=== PATIENT | female | born 1925 | race Hispanic/Latino ===

== ENCOUNTER 2017-08-25 18:27 | Inpatient (IN) | payer MEDICARE ==
[2017-08-25 19:25] LABS: BASO % 0.6 % (0.0-2.0); EOS # 0.1 K/uL (0.0-0.7); EOS % 1.3 % (0.0-4.0); HEMOGLOBIN 13.1 g/dL (12.0-16.0); LYMPH # 2.1 K/uL (1.0-4.3); LYMPH % 30.6 % (20.0-40.0); MEAN CELL VOLUME 92.3 fl (81.0-99.0); MEAN CORPUSCULAR HEMOGLOBIN 30.8 pg (27.0-31.0); MEAN CORPUSCULAR HGB CONC 33.4 g/dL (33.0-37.0); MONO # 0.6 K/uL (0.0-0.8); NEUT # 4.1 K/uL (1.8-7.0); NEUT % 58.5 % (50.0-75.0); NRBC % 0.1 % (0.0-0.0); RBC 4.25 Mil/uL (3.80-5.20); RED CELL DISTRIBUTION WIDTH 14.3 % (11.5-14.5)
[2017-08-25 19:28] LABS: PARTIAL THROMBOPLASTIN TIME 36.1 Seconds (25.6-37.1); PROTHROMBIN TIME 11.2 Seconds (9.8-13.1)
[2017-08-25 19:30] LABS: ALB/GLOB RATIO 1.1 (1.0-2.1); ALBUMIN 4.2 g/dL (3.5-5.0); ALT/SGPT 82 U/L (9-52); AST/SGOT 70 U/L (14-36); BLOOD UREA NITROGEN 17 mg/dl (7-17); CALCIUM 9.5 mg/dL (8.4-10.2); GFR AFRICAN-AMERICAN > 60; GFR NON-AFRICAN AMERICAN > 60
--- NOTE | 2017-08-25 19:46 | ED PDOC ---
HPI: Hypertension/Hypotension Chief Complaint (Provider): DIZZINESS History Per: Patient (89 Y/O FEMALE H/O ARYTHMIA ON ELOQUIS/BISOPROLOL VISITING FROM [facility] NOTES NEAR SYNCOPE INTERMITTENTLY SINCE TODAY 9AM. DENIES ANY CHEST PAIN/ABDOMINAL PAIN/FEVERS/CHILLS/COUGH/VOMITING. WAS SEEN BY BAKER AND SENT TO ED FOR EVALUATION.) <Brooklyn Malcolm - Last Filed: 08/25/17 21:16> <Caesar Salcido - Last Filed: 08/25/17 22:16> Time Seen by Provider: 08/25/17 19:15 Chief Complaint (Nursing): High Blood Pressure Supervising Attending Note - Supervising Attending Note The Documented history was done by the: Attending Physician The documented physical exam was done by the: Attending Physician - Attestation: I have personally seen and examined this patient.: Yes I have fully participated in the care of the patient.: Yes I have reviewed all pertinent clinical information, including history, physical exam and plan: Yes <Caesar Salcido - Last Filed: 08/25/17 22:16> Past Medical History Reviewed: Historical Data, Nursing Documentation, Vital Signs Vital Signs: Last Vital Signs Temp 98.8 F 08/25/17 18:37 Pulse 36 L 08/25/17 19:43 Resp 14 08/25/17 19:43 BP 156/36 H 08/25/17 19:43 Pulse Ox 100 08/25/17 19:43 - Medical History PMH: Atrial Fibrillation, HTN - Family History Family History: States: No Known Family Hx <Brooklyn Malcolm - Last Filed: 08/25/17 21:16> Vital Signs: Last Vital Signs Temp 98.8 F 08/25/17 18:37 Pulse 71 08/25/17 21:05 Resp 15 08/25/17 21:05 BP 126/91 H 08/25/17 21:05 Pulse Ox 100 08/25/17 21:16 <Caesar Salcido - Last Filed: 08/25/17 22:16> - Home Medications Home Medications: Ambulatory Orders Medication Instructions Recorded Apixaban [Eliquis] 5 mg PO BID 08/25/17 Bisoprolol Fumarate 1.25 mg PO DAILY 08/25/17 Patient Own Control 300 mg PO DAILY 08/25/17 - Allergies Allergies/Adverse Reactions: Allergies Allergy/AdvReac Type Severity Reaction Status Date / Time No Known Allergies Allergy Verified 08/25/17 18:38 Review of Systems ROS Statement: Except As Marked, All Systems Reviewed And Found Negative <Brooklyn Malcolm - Last Filed: 08/25/17 21:16> Physical Exam - Reviewed Nursing Documentation Reviewed: Yes Vital Signs Reviewed: Yes - Physical Exam Appears: Positive for: Well, Non-toxic, No Acute Distress Head Exam: Positive for: ATRAUMATIC, NORMAL INSPECTION, NORMOCEPHALIC Skin: Positive for: Normal Color, Warm, DRY Eye Exam: Positive for: EOMI, Normal appearance, PERRL ENT: Positive for: Normal ENT Inspection Neck: Positive for: Normal, Painless ROM Cardiovascular/Chest: Positive for: Regular Rate, Rhythm Respiratory: Positive for: CNT, Normal Breath Sounds Gastrointestinal/Abdominal: Positive for: Normal Exam, Soft Back: Positive for: Normal Inspection Extremity: Positive for: Normal ROM Neurologic/Psych: Positive for: Alert, Oriented <Brooklyn Malcolm - Last Filed: 08/25/17 21:16> - Laboratory Results Result Diagrams: 08/25/17 19:01 08/25/17 19:01 - ECG ECG Rhythm: Positive for: Sinus Rhythm (NSR 71 BPM; WITH FIRST DEG AV BLOCK) O2 Sat by Pulse Oximetry: 100 - Progress ED Course And Treament: PATIENT NOTED TO HAVE PAUSE ON HEART MONITOR WITH NEAR SYNCOPE NOTED AT THAT TIME. rhythm strip obtained with complete heart block noted intermittently. Pacer pads placed. Atropine 0.5mg iv x 1 dose given d/w Dr. Mari. Patient to be admitted to ICU on pacer pads. Patient's repeat BP normotensive and episodes brief and symptomatic in ED. CAse d/w Sumeet landry by Dr. Salcido <Brooklyn Malcolm - Last Filed: 08/25/17 21:16> - Laboratory Results Result Diagrams: 08/25/17 19:01 08/25/17 19:01 - Critical Care Total Time (In Min): 60 <Caesar Salcido - Last Filed: 08/25/17 22:16> Disposition - Patient ED Disposition Is Patient to be Admitted: Yes - Disposition Disposition Time: 21:14 <Brooklyn Malcolm - Last Filed: 08/25/17 21:16> Discussed With Dr.: Bryan Kim (Dr Mari) Comment: spoke with Long Landry NP covering Dr Kim Doctor Will See Patient In The: Hospital <FélixalessandraisraCaesar Morro - Last Filed: 08/25/17 22:16> - Clinical Impression Clinical Impression: Intermittent complete heart block - Disposition Condition: CRITICAL
[2017-08-25] MEDS ORDERED: DOPamine 400mg/250ml D5W 400 MG/250 ML BAG IV ONE ×2 (21:50→21:56)
--- NOTE | 2017-08-25 21:50 | CP.PCM.CON ---
History of Present Illness - History of Present Illness History of Present Illness: CC: dizziness HPI: 89F PMH afib on Bisoprolol and Eliquis presented to the ED complaining of waxing and waning episodes of moderate dizziness and lightheadedness lasting 10 minutes at a time, associated with mild fatigue. Pt was initially seen by Dianne puente, and was sent to ED for further evaluation for a pause on heart monitor. In ED, pt found to be in complete heart block, symptomatic. Given Atropine with some improvement for about an hour, however pt then continued to have more frequent episodes of complete heart block, symptomatic. Cardiology Consult with Dr. Mari appreciated. Pt placed on pacemaker pads, dopamine at 10 mcg, trending cardiac enzymes, and echo for AM. Holding all beta blockers. Currently in ICU patient resting comfortably, HR 73, BP 137/74. Monitor closely ICU. ROS: per HPI all other systems reviewed and negative Past Patient History - Past Social History Smoking Status: Never Smoked - CARDIAC Hx Atrial Fibrillation: Yes Hx Hypertension: Yes - PSYCHIATRIC Hx Substance Use: No Meds Allergies/Adverse Reactions: Allergies Allergy/AdvReac Type Severity Reaction Status Date / Time No Known Allergies Allergy Verified 08/25/17 18:38 - Medications Medications: Current Medications Apixaban (Eliquis) 5 mg PO BID RODGER PRN Reason: Protocol Physical Exam - Constitutional Appears: Non-toxic, No Acute Distress - Head Exam Head Exam: ATRAUMATIC, NORMOCEPHALIC - Eye Exam Eye Exam: EOMI, Normal appearance, PERRL Pupil Exam: NORMAL ACCOMODATION - ENT Exam ENT Exam: Mucous Membranes Moist, Normal Oropharynx - Neck Exam Neck exam: Positive for: Full Rom, Normal Inspection - Respiratory Exam Respiratory Exam: Clear to Auscultation Bilateral, NORMAL BREATHING PATTERN - Cardiovascular Exam Cardiovascular Exam: RRR, +S1, +S2 - GI/Abdominal Exam GI & Abdominal Exam: Normal Bowel Sounds, Soft. absent: Mass - Extremities Exam Extremities exam: Positive for: normal capillary refill, pedal pulses present - Back Exam Back exam: absent: CVA tenderness (L), CVA tenderness (R) - Neurological Exam Neurological exam: Alert, Oriented x3 - Psychiatric Exam Psychiatric exam: Normal Affect, Normal Mood - Skin Skin Exam: Dry, Warm Results - Vital Signs Recent Vital Signs: Last Vital Signs Temp 98.8 F 04/13/18 18:37 Pulse 71 08/25/17 21:05 Resp 15 08/25/17 21:05 BP 126/91 H 08/25/17 21:05 Pulse Ox 100 08/25/17 21:16 - Labs Result Diagrams: 08/25/17 19:01 08/25/17 19:01 Labs: Laboratory Results - last 24 hr 08/25/17 08/25/17 08/25/17 19:01 19:01 19:01 WBC 7.0 RBC 4.25 Hgb 13.1 Hct 39.3 MCV 92.3 MCH 30.8 MCHC 33.4 RDW 14.3 Plt Count 248 MPV 10.0 Neut % (Auto) 58.5 Lymph % (Auto) 30.6 [place] % (Auto) 9.0 Eos % (Auto) 1.3 Baso % (Auto) 0.6 Neut # (Auto) 4.1 Lymph # (Auto) 2.1 [place] # (Auto) 0.6 Eos # (Auto) 0.1 Baso # (Auto) 0.0 PT 11.2 INR 1.0 APTT 36.1 Sodium 145 Potassium 4.4 Chloride 102 Carbon Dioxide 28 Anion Gap 19 BUN 17 Creatinine 0.6 L Est GFR ( Amer) > 60 Est GFR (Non-Af Amer) > 60 Random Glucose 111 H Calcium 9.5 Total Bilirubin 0.3 AST 70 H ALT 82 H Alkaline Phosphatase 121 Troponin I 0.0150 Total Protein 8.2 Albumin 4.2 Globulin 4.0 H Albumin/Globulin Ratio 1.1 Assessment & Plan - Assessment and Plan (Free Text) Plan: 89F PMH afib on Bisoprolol and Eliquis presented to the ED complaining of waxing and waning episodes of moderate dizziness and lightheadedness lasting 10 minutes at a time, associated with mild fatigue. Pt was initially seen by [facility], and was sent to ED for further evaluation for a pause on heart monitor. In ED, pt found to be in complete heart block, symptomatic. Given Atropine with some improvement for about an hour, however pt then continued to have more frequent episodes of complete heart block, symptomatic. Cardiology Consult with Dr. Mari appreciated. Pt placed on pacemaker pads, dopamine at 10 mcg, trending cardiac enzymes, and echo for AM. Holding all beta blockers. Currently in ICU patient resting comfortably, HR 73, BP 137/74. Monitor closely ICU. Complete Heart Block Hx Afib - pt on pacemaker pads, Dopamine 10 mcg, trending enzymes, ECHO in AM - monitor electrolytes - Cardiology consult Dr. Mari appreciated and followed - NPO - HOLD all BB - continue Eliquis, pt flips between sinus and afib.
[2017-08-25] MEDS ORDERED: DiphenhydrAMINE 50 mg/ml Inj IVP STA (23:43)
[2017-08-26 05:49] LABS: HEMOGLOBIN 14.1 g/dL (12.0-16.0); MEAN CELL VOLUME 91.7 fl (81.0-99.0); MEAN CORPUSCULAR HEMOGLOBIN 30.7 pg (27.0-31.0); MEAN CORPUSCULAR HGB CONC 33.4 g/dL (33.0-37.0); RBC 4.59 Mil/uL (3.80-5.20); RED CELL DISTRIBUTION WIDTH 14.4 % (11.5-14.5)
[2017-08-26 06:03] LABS: BLOOD UREA NITROGEN 16 mg/dl (7-17); CALCIUM 9.4 mg/dL (8.4-10.2); GFR AFRICAN-AMERICAN > 60; GFR NON-AFRICAN AMERICAN > 60
--- NOTE | 2017-08-26 07:10 | CP.PCM.HP ---
History of Present Illness - History of Present Illness History of Present Illness: pt admitted for bradyarythmia and dizziness. most of care in [place]. on eliquis, bisoprolol, piascledine at present w/o complaints. on dopamine w/ sr 50-60s on monitor. bw and imaging noted. case d/c w/ dr palma-cardio Present on Admission - Present on Admission Any Indicators Present on Admission: No Review of Systems - Cardiovascular Cardiovascular: As Per HPI, Irregular Heart Rhythm, Slow Heart Rate - Neurological Neurological: As Per HPI, Dizziness Past Patient History - Past Social History Smoking Status: Never Smoked - CARDIAC Hx Atrial Fibrillation: Yes Hx Hypertension: Yes - MUSCULOSKELETAL/RHEUMATOLOGICAL Hx Falls: No - PSYCHIATRIC Hx Substance Use: No - ANESTHESIA Hx Anesthesia: No Meds Allergies/Adverse Reactions: Allergies Allergy/AdvReac Type Severity Reaction Status Date / Time No Known Allergies Allergy Verified 08/25/17 18:38 Physical Exam - Constitutional Appears: Well, Non-toxic, No Acute Distress - Head Exam Head Exam: ATRAUMATIC, NORMAL INSPECTION, NORMOCEPHALIC - Eye Exam Eye Exam: EOMI, Normal appearance, PERRL Pupil Exam: NORMAL ACCOMODATION, PERRL - ENT Exam ENT Exam: Mucous Membranes Moist, Normal Exam - Neck Exam Neck exam: Positive for: Normal Inspection - Respiratory Exam Respiratory Exam: Clear to Auscultation Bilateral, NORMAL BREATHING PATTERN - Cardiovascular Exam Cardiovascular Exam: Bradycardia, REGULAR RHYTHM, RRR, +S1, +S2 - GI/Abdominal Exam GI & Abdominal Exam: Normal Bowel Sounds, Soft. absent: Tenderness - Extremities Exam Extremities exam: Positive for: full ROM, normal capillary refill, normal inspection, pedal pulses present - Back Exam Back exam: NORMAL INSPECTION - Neurological Exam Neurological exam: Alert, CN II-XII Intact, Normal Gait, Oriented x3, Reflexes Normal - Psychiatric Exam Psychiatric exam: Normal Affect, Normal Mood - Skin Skin Exam: Dry, Intact, Normal Color, Warm Results - Vital Signs Recent Vital Signs: Last Vital Signs Temp 97.7 F 08/26/17 00:00 Pulse 65 08/26/17 04:00 Resp 16 08/26/17 04:00 BP 129/92 H 08/26/17 04:00 Pulse Ox 97 08/26/17 04:00 - Labs Result Diagrams: 08/26/17 04:39 08/26/17 04:39 Labs: Laboratory Results - last 24 hr 08/25/17 08/25/17 08/25/17 19:01 19:01 19:01 WBC 7.0 RBC 4.25 Hgb 13.1 Hct 39.3 MCV 92.3 MCH 30.8 MCHC 33.4 RDW 14.3 Plt Count 248 MPV 10.0 Neut % (Auto) 58.5 Lymph % (Auto) 30.6 [place] % (Auto) 9.0 Eos % (Auto) 1.3 Baso % (Auto) 0.6 Neut # (Auto) 4.1 Lymph # (Auto) 2.1 [place] # (Auto) 0.6 Eos # (Auto) 0.1 Baso # (Auto) 0.0 PT 11.2 INR 1.0 APTT 36.1 Sodium 145 Potassium 4.4 Chloride 102 Carbon Dioxide 28 Anion Gap 19 BUN 17 Creatinine 0.6 L Est GFR ( Amer) > 60 Est GFR (Non-Af Amer) > 60 Random Glucose 111 H Calcium 9.5 Phosphorus Magnesium Total Bilirubin 0.3 AST 70 H ALT 82 H Alkaline Phosphatase 121 Troponin I 0.0150 Total Protein 8.2 Albumin 4.2 Globulin 4.0 H Albumin/Globulin Ratio 1.1 08/25/17 08/26/17 08/26/17 19:10 04:35 04:39 WBC 10.0 RBC 4.59 Hgb 14.1 Hct 42.0 MCV 91.7 MCH 30.7 MCHC 33.4 RDW 14.4 Plt Count 253 MPV Neut % (Auto) Lymph % (Auto) [place] % (Auto) Eos % (Auto) Baso % (Auto) Neut # (Auto) Lymph # (Auto) [place] # (Auto) Eos # (Auto) Baso # (Auto) PT INR APTT Sodium Potassium Chloride Carbon Dioxide Anion Gap BUN Creatinine Est GFR ( Amer) Est GFR (Non-Af Amer) Random Glucose Calcium Phosphorus 3.2 Magnesium 2.1 Total Bilirubin AST ALT Alkaline Phosphatase Troponin I 0.0240 Total Protein Albumin Globulin Albumin/Globulin Ratio 08/26/17 04:39 WBC RBC Hgb Hct MCV MCH MCHC RDW Plt Count MPV Neut % (Auto) Lymph % (Auto) [place] % (Auto) Eos % (Auto) Baso % (Auto) Neut # (Auto) Lymph # (Auto) [place] # (Auto) Eos # (Auto) Baso # (Auto) PT INR APTT Sodium 145 Potassium 4.3 Chloride 102 Carbon Dioxide 27 Anion Gap 20 BUN 16 Creatinine 0.6 L Est GFR ( Amer) > 60 Est GFR (Non-Af Amer) > 60 Random Glucose 131 H Calcium 9.4 Phosphorus 4.5 Magnesium 2.0 Total Bilirubin AST ALT Alkaline Phosphatase Troponin I Total Protein Albumin Globulin Albumin/Globulin Ratio Assessment & Plan (1) DVT prophylaxis Assessment and Plan: scd and ae hose eliquis Status: Acute (2) Dizziness Assessment and Plan: r/t CHB, improving w/ dopamine Status: Acute (3) Intermittent complete heart block Assessment and Plan: cardio consul likely xfer to orting if pt consents. dopamine, cardio, icu care eliquis Status: Acute Decision To Admit - Pt Status Changed To: Hospital Disposition Of: Inpatient - Admit Certification Admit to Inpatient:: After my assessment, the patient will require hospitalization for at least two midnights. This is because of the severity of symptoms shown, intensity of services needed, and/or the medical risk in this patient being treated as an outpatient. - . Bed Request Type: Intensive Care Admitting Physician: Bryan Kim
--- NOTE | 2017-08-26 08:23 | RAD ---
PROCEDURE: CHEST RADIOGRAPH, 1 VIEW HISTORY: portable COMPARISON: None available. FINDINGS: LUNGS: Clear. PLEURA: No pneumothorax or pleural fluid seen. CARDIOVASCULAR: Normal. OSSEOUS STRUCTURES: No significant abnormalities. VISUALIZED UPPER ABDOMEN: Normal. OTHER FINDINGS: None. IMPRESSION: No active disease.
--- NOTE | 2017-08-26 08:37 | CARD ---
APPROVED REPORT EKG Measurement Heart [id number] <Conclusion> Sinus rhythm with 1st degree AV block Rightward axis Prolonged QT Abnormal ECG
[2017-08-26] MEDS ORDERED: DOPamine 400mg/250ml D5W 400 MG/250 ML BAG IV ONE ×3 (09:58→10:15)
--- NOTE | 2017-08-26 21:40 | PN ---
CRITICAL CARE PROGRESS NOTE DATE: 08/26/2017 LOCATION: The patient in ICU, bed 422 TIME SPENT: 35 minutes. SUBJECTIVE: The patient is seen and evaluated at the bedside. Past medical, surgical, and social history reviewed. An 89-year-old female with history of atrial fibrillation, on Eliquis and bisoprolol, admitted through emergency room when she presented with dizziness and lightheadedness lasting for about 10 minutes at a time associated with being tired. The patient was noted to be in complete heart block, overnight on dopamine drip, beta-blockers on hold. Telemetry showed rate improved into the 60s, normotensive. OBJECTIVE: GENERAL: This morning, less alert and awake, less dizziness. No chest pain or palpitation. No abdominal discomfort. No further vomiting noted. VITAL SIGNS: Temperature 98, heart rate 58, blood pressure 121/62, mean arterial pressure 81, respiratory rate 23, and saturating 100%. HEAD, EYES, EARS, NOSE AND THROAT: Pupils are reactive. Conjunctivae pink. Sclerae are white. NECK: Supple. Trachea is central. CHEST: Bilateral breath sounds clear to auscultation. HEART: Rhythm regular. S1 and S2 normal. No audible murmur. ABDOMEN: Bowel sounds present and Soft. Liver and spleen not palpable. Bladder not distended. EXTREMITIES: No clubbing, cyanosis, or edema. NEUROLOGIC: Nonfocal. CURRENT MEDICATIONS: Dopamine 400 mg in 250 at 10 mcg/kg/min. Beta-vaibhav on hold. LABORATORY DATA: WBC 10, hemoglobin 14.1, hematocrit 42, and platelet count of 253. PT 11.2, INR , PTT 36.1. SMA-7; sodium 145, potassium 4.3, chloride 102, co2 27, blood urea nitrogen 16, creatinine 0.6, random glucose 131, calcium 9.4, phosphorus 4.5, magnesium 2, troponin 0.015, 0.02, and 0.01. Microbiology, no growth reported. Chest x-ray, no active disease. IMPRESSION AND PLAN: 1. Neurologic: Alert, awake, and oriented to name, place, and time. Reduced dizziness. No headache. 2. Pulmonary: No less short of breath. 3. Cardiac: Complete heart block, on a dopamine drip improved and less symptomatic. Apixaban and bisoprolol on hold secondary to heart block. 4. Gastrointestinal: Elevated transaminase possibly secondary to hypotension, rule out fatty liver. 5. Hematology: No leukocytosis. Hemoglobin, hematocrit, and platelet count stable. No coagulopathy noted. 6. Endocrine: Follow TSH, T3, and T4 to rule out hypothyroidism, no electrolyte abnormalities noted. Anticoagulation on hold for pending pacemaker insertion. 7Renal normal renal function. patient is awaiting for bed at [facility]. Tone Delgado MD MTDD
--- NOTE | 2017-08-26 23:44 | CP.PCM.CON ---
History of Present Illness - History of Present Illness History of Present Illness: Consultation for 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 [place] along with bisoprolol rheumatoid arthritis for which she is taking antirheumatic medication plus daily and who presented with complains of not feeling well accompanied by dizziness and lethargy while she was in the emergency room she was noted to be having episodes of high-grade AV block with brief periods of complete heart block with heart rate in the 30s she was given atropine and was subsequently initiated on dopamine and admitted to the ICU overnight she remained in sinus with heart rate in 60s on 10 mcg of dopamine clinically feeling fine denies any complains of chest pain shortness of breath palpitations that she was having some difficulties with concentration and was having mild brief episodes of dizziness. Review of Systems - Review of Systems Systems not reviewed;Unavailable: Acuity of Condition - Constitutional Constitutional: As Per HPI - EENT Eyes: As Per HPI Ears: As Per HPI Nose/Mouth/Throat: As Per HPI - Breasts Breasts: As Per HPI - Cardiovascular Cardiovascular: As Per HPI - Respiratory Respiratory: As Per HPI - Gastrointestinal Gastrointestinal: As Per HPI - Genitourinary Genitourinary: As Per HPI - Reproductive: Female Reproductive:Female: As Per HPI - Menstruation Menstruation: As Per HPI - Musculoskeletal Musculoskeletal: As Per HPI - Integumentary Integumentary: As Per HPI - Neurological Neurological: As Per HPI - Psychiatric Psychiatric: As Per HPI - Endocrine Endocrine: As Per HPI - Hematologic/Lymphatic Hematologic: As Per HPI Past Patient History - Past Social History Smoking Status: Never Smoked - CARDIAC Hx Atrial Fibrillation: Yes Hx Hypertension: Yes - MUSCULOSKELETAL/RHEUMATOLOGICAL Hx Falls: No - PSYCHIATRIC Hx Substance Use: No - ANESTHESIA Hx Anesthesia: No Meds Home Medications: Home Medication List Medication Instructions Recorded Confirmed Type RX: DOPamine 400mg/250ml D5W 250 ml IV CONT #1 bag 08/26/17 Rx RX: Ondansetron [Zofran Inj] 4 mg IVP Q6 PRN vial 08/26/17 Rx Allergies/Adverse Reactions: Allergies Allergy/AdvReac Type Severity Reaction Status Date / Time No Known Allergies Allergy Verified 08/25/17 18:38 - Medications Medications: Current Medications Dopamine HCl/Dextrose (Dopamine 400mg/250ml D5w) 400 mg in 250 mls @ 4.763 mls/ hr IV .Q24H ONE; 2 MCG/KG/MIN PRN Reason: Protocol Stop: 08/27/17 10:14 Last Admin: 08/26/17 11:48 Dose: 10 mcg/kg/min, 23.814 mls/hr Ondansetron HCl (Zofran Inj) 4 mg IVP Q6 PRN PRN Reason: Nausea/Vomiting Last Admin: 08/26/17 01:00 Dose: 4 mg Physical Exam - Constitutional Appears: Well - Head Exam Head Exam: ATRAUMATIC, NORMAL INSPECTION, NORMOCEPHALIC - Eye Exam Eye Exam: EOMI, Normal appearance, PERRL Pupil Exam: NORMAL ACCOMODATION, PERRL - ENT Exam ENT Exam: Mucous Membranes Moist, Normal Exam - Neck Exam Neck exam: Positive for: Normal Inspection - Respiratory Exam Respiratory Exam: Clear to Auscultation Bilateral, NORMAL BREATHING PATTERN - Cardiovascular Exam Cardiovascular Exam: REGULAR RHYTHM, +S1, +S2, Systolic Murmur - GI/Abdominal Exam GI & Abdominal Exam: Normal Bowel Sounds, Soft. absent: Tenderness - Extremities Exam Extremities exam: Positive for: normal inspection - Back Exam Back exam: NORMAL INSPECTION - Neurological Exam Neurological exam: Alert, CN II-XII Intact, Normal Gait, Oriented x3, Reflexes Normal - Psychiatric Exam Psychiatric exam: Normal Affect, Normal Mood - Skin Skin Exam: Dry, Intact, Normal Color, Warm Results - Vital Signs Recent Vital Signs: Last Vital Signs Temp 97.8 F 08/26/17 20:00 Pulse 60 08/26/17 22:00 Resp 15 08/26/17 22:00 BP 119/70 08/26/17 22:00 Pulse Ox 98 08/26/17 22:00 - Labs Result Diagrams: 08/26/17 04:39 08/26/17 04:39 Labs: Laboratory Results - last 24 hr 08/26/17 08/26/17 08/26/17 04:35 04:39 04:39 WBC 10.0 RBC 4.59 Hgb 14.1 Hct 42.0 MCV 91.7 MCH 30.7 MCHC 33.4 RDW 14.4 Plt Count 253 Sodium 145 Potassium 4.3 Chloride 102 Carbon Dioxide 27 Anion Gap 20 BUN 16 Creatinine 0.6 L Est GFR ( Amer) > 60 Est GFR (Non-Af Amer) > 60 Random Glucose 131 H Calcium 9.4 Phosphorus 4.5 Magnesium 2.0 Troponin I 0.0240 08/26/17 12:00 WBC RBC Hgb Hct MCV MCH MCHC RDW Plt Count Sodium Potassium Chloride Carbon Dioxide Anion Gap BUN Creatinine Est GFR ( Amer) Est GFR (Non-Af Amer) Random Glucose Calcium Phosphorus Magnesium Troponin I 0.0150 Assessment & Plan (1) Intermittent complete heart block Assessment and Plan: cont dopamine for now dc bb plan for PPM on [facility] at [facility] per and PCP request echo Status: Acute (2) Afib Assessment and Plan: hold eliquis dc BB Status: Acute (3) Dizziness Status: Acute
[2017-08-27] MEDS ORDERED: DOPamine 400mg/250ml D5W 400 MG/250 ML BAG IV ONE (01:22)
[2017-08-27 04:54] VITALS: O2SAT 100
[2017-08-27 04:55] VITALS: BP 154/70; PULSE 57; RESP 19; TEMP 98.4
--- NOTE | 2017-08-27 07:39 | CP.PCM.DIS ---
Provider - Provider Date of Admission: 08/25/17 20:53 Attending physician: Bryan Kim MD Time Spent in preparation of Discharge (in minutes): 20 Diagnosis - Discharge Diagnosis (1) DVT prophylaxis Status: Acute (2) Dizziness Status: Acute (3) Intermittent complete heart block Status: Acute Hospital Course - Lab Results Lab Results: Most Recent Lab Values WBC 10.0 K/uL (4.8-10.8) 08/26/17 04:39 RBC 4.59 Mil/uL (3.80-5.20) 08/26/17 04:39 Hgb 14.1 g/dL (12.0-16.0) 08/26/17 04:39 Hct 42.0 % (34.0-47.0) 08/26/17 04:39 MCV 91.7 fl (81.0-99.0) 08/26/17 04:39 MCH 30.7 pg (27.0-31.0) 08/26/17 04:39 MCHC 33.4 g/dL (33.0-37.0) 08/26/17 04:39 RDW 14.4 % (11.5-14.5) 08/26/17 04:39 Plt Count 253 K/uL (130-400) 08/26/17 04:39 MPV 10.0 fl (7.2-11.7) 08/25/17 19:01 Neut % (Auto) 58.5 % (50.0-75.0) 08/25/17 19:01 Lymph % (Auto) 30.6 % (20.0-40.0) 08/25/17 19:01 [place] % (Auto) 9.0 % (0.0-10.0) 08/25/17 19:01 Eos % (Auto) 1.3 % (0.0-4.0) 08/25/17 19:01 Baso % (Auto) 0.6 % (0.0-2.0) 08/25/17 19:01 Neut # (Auto) 4.1 K/uL (1.8-7.0) 08/25/17 19:01 Lymph # (Auto) 2.1 K/uL (1.0-4.3) 08/25/17 19:01 [place] # (Auto) 0.6 K/uL (0.0-0.8) 08/25/17 19:01 Eos # (Auto) 0.1 K/uL (0.0-0.7) 08/25/17 19:01 Baso # (Auto) 0.0 K/uL (0.0-0.2) 08/25/17 19:01 PT 11.2 Seconds (9.8-13.1) 08/25/17 19:01 INR 1.0 (0.9-1.2) 08/25/17 19:01 APTT 36.1 Seconds (25.6-37.1) 08/25/17 19:01 Sodium 145 mmol/l (132-148) 08/26/17 04:39 Potassium 4.3 MMOL/L (3.6-5.0) 08/26/17 04:39 Chloride 102 mmol/L (98-107) 08/26/17 04:39 Carbon Dioxide 27 mmol/L (22-30) 08/26/17 04:39 Anion Gap 20 (10-20) 08/26/17 04:39 BUN 16 mg/dl (7-17) 08/26/17 04:39 Creatinine 0.6 mg/dl (0.7-1.2) L 08/26/17 04:39 Est GFR ( Amer) > 60 08/26/17 04:39 Est GFR (Non-Af Amer) > 60 08/26/17 04:39 Random Glucose 131 mg/dL (65-105) H 08/26/17 04:39 Calcium 9.4 mg/dL (8.4-10.2) 08/26/17 04:39 Phosphorus 4.5 mg/dl (2.5-4.5) 08/26/17 04:39 Magnesium 2.0 MG/DL (1.6-2.3) 08/26/17 04:39 Total Bilirubin 0.3 mg/dl (0.2-1.3) 08/25/17 19:01 AST 70 U/L (14-36) H 08/25/17 19:01 ALT 82 U/L (9-52) H 08/25/17 19:01 Alkaline Phosphatase 121 U/L (38-126) 08/25/17 19:01 Troponin I 0.0150 ng/mL (0.00-0.120) 08/26/17 12:00 Total Protein 8.2 G/DL (6.3-8.2) 08/25/17 19:01 Albumin 4.2 g/dL (3.5-5.0) 08/25/17 19:01 Globulin 4.0 gm/dL (2.2-3.9) H 08/25/17 19:01 Albumin/Globulin Ratio 1.1 (1.0-2.1) 08/25/17 19:01 - Hospital Course Hospital Course: atropine in er. pacer pads to chest dopamine cardio echo Discharge Exam - Head Exam Head Exam: ATRAUMATIC, NORMAL INSPECTION, NORMOCEPHALIC Discharge Plan - Discharge Medications Prescriptions: DOPamine 400mg/250ml D5W 250 ml IV CONT #1 bag - Follow Up Plan Condition: CRITICAL Disposition: Trans to Other Acute Care Hosp Additional Instructions: pt xfer to [facility] for cath/ep eval/pacemaker placement mon am. final dx-symptomatic bradycardia, dizziness, intermittent Complete Heart Block. f/u rmg upon dc and in [facility] meds per med rec, hold b vaibhav and eliquis for procedures/bradycardia.
--- NOTE | 2017-08-27 09:09 | CARD ---
APPROVED REPORT EXAM: Two-dimensional and M-mode echocardiogram with Doppler and color Doppler. Other Information Quality : PoorRhythm : INDICATION 2D DIMENSIONS IVSd1.64 (0.7-1.1cm)LVDd3.55 (3.9-5.9cm) PWd1.04 (0.7-1.1cm)IVSs1.59 (0.8-1.2cm) LVDs2.51 (2.5-4.0cm)FS (%) 29.3 % PWs1.61 (0.8-1.2cm) M-Mode DIMENSIONS Left Atrium (MM)4.92 (2.5-4.0cm)IVSd0.61 (0.7-1.1cm) Aortic Root2.04 (2.2-3.7cm)LVDd5.23 (4.0-5.6cm) Aortic Cusp Exc.1.84 (1.5-2.0cm)PWd1.13 (0.7-1.1cm) IVSs1.76 cmFS (%) 45 % LVDs2.89 (2.0-3.8cm)PWs1.62 cm Mitral Valve MV E Hiwybqdz231.5cm/sMV E Peak Gr.27mmHgMV DECEL [id number] MV A Otesuzbq93.9cm/sMV AHS686uqT/A ratio1.5 MVA (PHT)1.60cm2 TDI Lateral E' Peak V5.30cm/sMedial E' Peak V4.24cm/sE/Lateral E'26.7 E/Medial E'33.4 Pulmonary Valve PV Peak Fyvkwiha672.7cm/s Tricuspid Valve TR Peak Massapjy207ps/sTR Peak Gr.24mmHg LEFT VENTRICLE The left ventricle is normal size. There is normal left ventricular wall thickness. Left ventricle systolic function is normal. The Ejection Fraction is 65-70%. There is normal LV segmental wall motion. Pt has mitral stenosis. RIGHT VENTRICLE The right ventricle is normal size. There is normal right ventricular wall thickness. The right ventricular systolic function is normal. ATRIA The left atrium is moderately dilated. The right atrium is mildly dilated. AORTIC VALVE The aortic valve is mildly sclerotic. No aortic regurgitation is present. There is no aortic valvular stenosis. MITRAL VALVE The mitral valve leaflets are thickened. There is no evidence of mitral valve prolapse. There is mild mitral valve stenosis. Calculated mitral valve area is 1.5 cm2 with maximum pressure gradient of 1.49 mmHg Mitral regurgitation is mild. TRICUSPID VALVE The tricuspid valve is normal in structure. There is mild tricuspid regurgitation. Right ventricular systolic pressure is estimated at 40 mmHg. There is mild pulmonary hypertension. PULMONIC VALVE The pulmonary valve is normal in structure. There is no pulmonic valvular regurgitation. GREAT VESSELS The aortic root is normal in size. Due to poor image quality, the IVC could not be assessed. PERICARDIAL EFFUSION The pericardium appears normal. <Conclusion> The left ventricle is normal size. There is normal left ventricular wall thickness. There is normal LV segmental wall motion. Left ventricle systolic function is normal. The Ejection Fraction is 65-70%. The left atrium is moderately dilated. The mitral valve leaflets are thickened. There is mild mitral valve stenosis. There is mild tricuspid regurgitation. There is mild pulmonary hypertension.
== END 2017-08-27 04:40 | disposition short-term general hospital (02) | DRG 310 ==
LOC: H.ER 18:27 → H.ICU/CCU 20:53
PROVIDERS: ADMIT Family Medicine; ATTEND Family Medicine
DX: I44.2 Atrioventricular block, complete (principal); I48.0 Paroxysmal atrial fibrillation; M06.9 Rheumatoid arthritis, unspecified; Z79.01 Long term (current) use of anticoagulants; I95.9 Hypotension, unspecified; R74.0 Nonspecific elevation of levels of transaminase and lactic acid dehydrogenase [LDH]; I10 Essential (primary) hypertension; I95.89 Other hypotension